=== PATIENT | male | born 1995 | race Native Hawaiian/Other Pacific Islander ===

== ENCOUNTER 2017-01-20 14:13 | Emergency (ER) | payer OTHER ==
[2017-01-20 14:53] VITALS: BP 136/87
[2017-01-20 15:11] LABS: Urine Drugs of Abuse Note Disclamer
[2017-01-20 15:26] LABS: Bilirubin,Urine NEG (Negative); Blood,Urine NEG (Negative); Ketones,Urine NEG (Negative); Leukocyte Esterase,Urine NEG (Negative); Mucus,Urine FEW /HPF; Nitrite,Urine NEG (Negative)
[2017-01-20 15:44] LABS: Basophils % (Auto) 0.4 % (0.0-1.8); Eosinophils % (Auto) 3.2 % (0.0-4.3); Hematocrit 43.7 % (35.5-45.6); Hemoglobin 14.9 gm/dl (11.8-15.2); Mean Corpuscular HGB Conc 34 % (32-34); Mean Corpuscular Hemoglobin 30 pg (28-32); Mean Corpuscular Volume 89 fl (84-94); Platelet Count 243 K/mm3 (140-440); Red Blood Count 4.93 M/mm3 (3.65-5.03); Red Cell Distribution Width 14.3 % (13.2-15.2); White Blood Count 14.1 K/mm3 (4.5-11.0)
[2017-01-20 15:50] LABS: Anion Gap 20 mmol/L; Blood Urea Nitrogen 16 mg/dL (9-20); Calcium 8.7 mg/dL (8.4-10.2); Carbon Dioxide 24 mmol/L (22-30); Chloride 100.5 mmol/L (98-107); Glucose 94 mg/dL (75-100); Sodium 140 mmol/L (137-145)
== END 2017-01-20 16:31 | disposition left against medical advice (07) ==
LOC: ED 14:13
DX: R45.4 Irritability and anger (principal); F17.200 Nicotine dependence, unspecified, uncomplicated; F15.90 Other stimulant use, unspecified, uncomplicated; Z53.21 Procedure and treatment not carried out due to patient leaving prior to being seen by health care provider
CPT/HCPCS: 36415; 80048; 80307; 81001; 85025; G0480; 80320

== ENCOUNTER 2021-03-02 16:40 | Emergency (ER) | payer SELFPAY ==
--- NOTE | 2021-03-02 16:51 | Emergency Department Report ---
HPI - General Time Seen by Provider: 03/02/21 16:41 - HPI HPI: Room 6 The patient is a 26-year-old male present with a chief complaint of overdose. EMS states they were called for an unresponsive patient after family found the patient unresponsive on the floor in the bedroom. EMS responded to find the patient breathing 8-10 times per minute and unresponsive. Family states that the patient uses "pills" so Narcan was administered. Approximately 10 minutes prior to arrival to the ED the patient became responsive. Upon arrival to the ED the patient is now responsive and answering questions. Patient denies any complaints. When asked what medication he took the patient states he took Xanax. Patient denies other ingestions ED Past Medical Hx - Past Medical History Hx Psychiatric Treatment: Yes (Mood disorder, Anger issues, Diff sleeping) - Surgical History Past Surgical History?: No - Family History Family history: no significant - Social History Smoking Status: Current Every Day Smoker Substance Use Type: Alcohol, Methamphetamines, Other ("Pills") - Medications Home Medications: Home Medications Medication Instructions Recorded Confirmed Last Taken Type Naloxone HCl [Narcan Nasal [place]] 4 mg NS ONCE PRN #1 spray 03/02/21 Unknown Rx ED Review of Systems ROS: Stated complaint: OVERDOSE Other details as noted in HPI Constitutional: no symptoms reported Eyes: denies: eye pain ENT: denies: throat pain Respiratory: no symptoms reported Cardiovascular: denies: chest pain Endocrine: no symptoms reported Gastrointestinal: denies: abdominal pain Genitourinary: denies: dysuria Musculoskeletal: denies: back pain Neurological: denies: headache Physical Exam - Physical Exam Physical Exam: GENERAL: The patient is well-developed well-nourished male lying on stretcher not appearing to be in acute distress. Pale HEENT: Normocephalic. Atraumatic. Extraocular motions are intact. Patient has moist mucous membranes. NECK: Supple. Trachea midline CHEST/LUNGS: Clear to auscultation. There is no respiratory distress noted. HEART/CARDIOVASCULAR: Regular. There is no tachycardia. There is no gallop rub or murmur. ABDOMEN: Abdomen is soft, nontender. Patient has normal bowel sounds. There is no abdominal distention. SKIN: There is no rash. There is no edema. There is no diaphoresis. NEURO: The patient is awake, alert, and oriented. The patient is cooperative. The patient has no focal neurologic deficits. The patient has normal speech. GCS 15 MUSCULOSKELETAL: There is no evidence of acute injury. ED Course - Reevaluation(s) Reevaluation #1: 03/02/21 19:19 Patient remains alert and oriented. Asking for food. Patient in no acute distress denies complaints. ED Medical Decision Making - Lab Data Result diagrams: 03/02/21 17:00 03/02/21 17:00 Laboratory Tests 03/02/21 03/02/21 03/02/21 17:00 17:00 17:00 WBC 24.2 H RBC 4.86 Hgb 15.3 H Hct 45.2 MCV 93 MCH 31 MCHC 34 RDW 13.8 Plt Count 240 Add Manual Diff Complete Total Counted 100 Seg Neuts % (Manual) 83.0 H Band Neutrophils % 1.0 Lymphocytes % (Manual) 9.0 L Monocytes % (Manual) 5.0 Eosinophils % (Manual) 2.0 Nucleated RBC % Not Reportable Seg Neutrophils # Man 20.1 H Band Neutrophils # 0.2 Lymphocytes # (Manual) 2.2 Abs React Lymphs (Man) 0.0 Monocytes # (Manual) 1.2 H Eosinophils # (Manual) 0.5 H Basophils # (Manual) 0.0 Metamyelocytes # 0.0 Myelocytes # 0.0 Promyelocytes # 0.0 Blast Cells # 0.0 WBC Morphology Not Reportable Hypersegmented Neuts Not Reportable Hyposegmented Neuts Not Reportable Hypogranular Neuts Not Reportable Smudge Cells Not Reportable Toxic Granulation Not Reportable Toxic Vacuolation Not Reportable Dohle Bodies Not Reportable Pelger-Huet Anomaly Not Reportable Otoniel Rods Not Reportable Platelet Estimate Consistent w auto Clumped Platelets Not Reportable Plt Clumps, EDTA Not Reportable Large Platelets Not Reportable Giant Platelets Not Reportable Platelet Satelliting Not Reportable Plt Morphology Comment Not Reportable RBC Morphology Normal Dimorphic RBCs Not Reportable Polychromasia Not Reportable Hypochromasia Not Reportable Poikilocytosis Not Reportable Anisocytosis Not Reportable Microcytosis Not Reportable Macrocytosis Not Reportable Spherocytes Not Reportable Pappenheimer Bodies Not Reportable Sickle Cells Not Reportable Target Cells Not Reportable Tear Drop Cells Not Reportable Ovalocytes Not Reportable Helmet Cells Not Reportable Griffith-Macarthur Bodies Not Reportable [place] Rings Not Reportable [place] Cells Not Reportable Bite Cells Not Reportable Crenated Cell Not Reportable Elliptocytes Not Reportable Acanthocytes (Spur) Not Reportable Rouleaux Not Reportable Hemoglobin C Crystals Not Reportable Schistocytes Not Reportable Malaria parasites Not Reportable [place] Bodies Not Reportable Hem Pathologist Commnt No ABG pH POC ABG pCO2 POC ABG pO2 POC ABG HCO3 ABG O2 Saturation POC ABG Base Excess ABG Hemoglobin ABG Oxyhemoglobin ABG Methemoglobin ABG Sodium ABG Potassium ABG Chloride ABG Glucose Carboxyhemoglobin FiO2 % Sodium 136 L Potassium 4.3 Chloride 98.8 Carbon Dioxide 20 L Anion Gap 22 BUN 12 Creatinine 1.0 Estimated GFR > 60 BUN/Creatinine Ratio 12 Glucose 289 H Calcium 9.0 Total Bilirubin 0.30 AST 57 H ALT 53 Alkaline Phosphatase 129 Total Creatine Kinase 178 H CK-MB (CK-2) 2.7 CK-MB (CK-2) Rel Index 1.5 Troponin T < 0.010 Total Protein 7.7 Albumin 4.4 Albumin/Globulin Ratio 1.3 Arterial Blood Glucose Salicylates Acetaminophen Plasma/Serum Alcohol 03/02/21 03/02/21 03/02/21 17:00 17:00 17:00 WBC RBC Hgb Hct MCV MCH MCHC RDW Plt Count Add Manual Diff Total Counted Seg Neuts % (Manual) Band Neutrophils % Lymphocytes % (Manual) Monocytes % (Manual) Eosinophils % (Manual) Nucleated RBC % Seg Neutrophils # Man Band Neutrophils # Lymphocytes # (Manual) Abs React Lymphs (Man) Monocytes # (Manual) Eosinophils # (Manual) Basophils # (Manual) Metamyelocytes # Myelocytes # Promyelocytes # Blast Cells # WBC Morphology Hypersegmented Neuts Hyposegmented Neuts Hypogranular Neuts Smudge Cells Toxic Granulation Toxic Vacuolation Dohle Bodies Pelger-Huet Anomaly Otoniel Rods Platelet Estimate Clumped Platelets Plt Clumps, EDTA Large Platelets Giant Platelets Platelet Satelliting Plt Morphology Comment RBC Morphology Dimorphic RBCs Polychromasia Hypochromasia Poikilocytosis Anisocytosis Microcytosis Macrocytosis Spherocytes Pappenheimer Bodies Sickle Cells Target Cells Tear Drop Cells Ovalocytes Helmet Cells Griffith-Macarthur Bodies [place] Rings Daisha Cells Bite Cells Crenated Cell Elliptocytes Acanthocytes (Spur) Rouleaux Hemoglobin C Crystals Schistocytes Malaria parasites [place]nam Bodies Hem Pathologist Commnt ABG pH POC ABG pCO2 POC ABG pO2 POC ABG HCO3 ABG O2 Saturation POC ABG Base Excess ABG Hemoglobin ABG Oxyhemoglobin ABG Methemoglobin ABG Sodium ABG Potassium ABG Chloride ABG Glucose Carboxyhemoglobin FiO2 % Sodium Potassium Chloride Carbon Dioxide Anion Gap BUN Creatinine Estimated GFR BUN/Creatinine Ratio Glucose Calcium Total Bilirubin AST ALT Alkaline Phosphatase Total Creatine Kinase CK-MB (CK-2) CK-MB (CK-2) Rel Index Troponin T Total Protein Albumin Albumin/Globulin Ratio Arterial Blood Glucose Salicylates < 0.3 L Acetaminophen 5.0 L Plasma/Serum Alcohol < 0.01 03/02/21 17:58 WBC RBC Hgb Hct MCV MCH MCHC RDW Plt Count Add Manual Diff Total Counted Seg Neuts % (Manual) Band Neutrophils % Lymphocytes % (Manual) Monocytes % (Manual) Eosinophils % (Manual) Nucleated RBC % Seg Neutrophils # Man Band Neutrophils # Lymphocytes # (Manual) Abs React Lymphs (Man) Monocytes # (Manual) Eosinophils # (Manual) Basophils # (Manual) Metamyelocytes # Myelocytes # Promyelocytes # Blast Cells # WBC Morphology Hypersegmented Neuts Hyposegmented Neuts Hypogranular Neuts Smudge Cells Toxic Granulation Toxic Vacuolation Dohle Bodies Pelger-Huet Anomaly Otoniel Rods Platelet Estimate Clumped Platelets Plt Clumps, EDTA Large Platelets Giant Platelets Platelet Satelliting Plt Morphology Comment RBC Morphology Dimorphic RBCs Polychromasia Hypochromasia Poikilocytosis Anisocytosis Microcytosis Macrocytosis Spherocytes Pappenheimer Bodies Sickle Cells Target Cells Tear Drop Cells Ovalocytes Helmet Cells Griffith-Macarthur Bodies [place] Rings [place] Cells Bite Cells Crenated Cell Elliptocytes Acanthocytes (Spur) Rouleaux Hemoglobin C Crystals Schistocytes Malaria parasites Satnam Bodies Hem Pathologist Commnt ABG pH 7.396 POC ABG pCO2 35.6 POC ABG pO2 125.7 H POC ABG HCO3 21.4 ABG O2 Saturation 98.5 POC ABG Base Excess -2.8 ABG Hemoglobin 15.2 ABG Oxyhemoglobin 97.5 ABG Methemoglobin 0.3 ABG Sodium 135.9 L ABG Potassium 3.9 ABG Chloride 103.0 ABG Glucose 150 H Carboxyhemoglobin 0.7 FiO2 % 21.0 Sodium Potassium Chloride Carbon Dioxide Anion Gap BUN Creatinine Estimated GFR BUN/Creatinine Ratio Glucose Calcium Total Bilirubin AST ALT Alkaline Phosphatase Total Creatine Kinase CK-MB (CK-2) CK-MB (CK-2) Rel Index Troponin T Total Protein Albumin Albumin/Globulin Ratio Arterial Blood Glucose 150 H Salicylates Acetaminophen Plasma/Serum Alcohol - EKG Data -: EKG Interpreted by Me EKG shows normal: sinus rhythm Rate: normal - EKG Data When compared to previous EKG there are: previous EKG unavailable Interpretation: other (No ischemic changes seen) - Radiology Data Radiology results: report reviewed (Chest x-ray) [facility] [address] [place] [address] X Ray Report Signed Patient: DEANA SARMIENTO MR#: [id number] 51 : 1995 Acct:[id number] Age/Sex: 26 / M ADM Date: 03/02/21 Loc: ED Attending Dr: Ordering Physician: JERARDO BLANTON MD Date of Service: 03/02/21 Procedure(s): XR chest 1V ap Accession Number(s): [id number] cc: JERARDO BLANTON MD Fluoro Time In Minutes: CHEST 1 VIEW 03/02/2021 4:21 PM INDICATION / CLINICAL INFORMATION: Unresponsive after overdose. COMPARISON: None available. FINDINGS: SUPPORT DEVICES: None. HEART / MEDIASTINUM: No significant abnormality. LUNGS / PLEURA: Low lung volumes with bibasilar opacities. No focal consolidation. No pneumothorax. ADDITIONAL FINDINGS: No significant additional findings. IMPRESSION: 1. No acute findings. Signer Name: Francisco Javier Aragon DO Signed: 03/02/2021 5:25 PM Workstation Name: [id number] Transcribed By: MUNDO Dictated By: FRANCISCO JAVIER ARAGON DO Electronically Authenticated By: FRANCISCO JAVIER ARAGON DO Signed Date/Time: 03/02/211724 DD/ 23 TD/TT: Print Cancel - Differential Diagnosis Overdose Critical care attestation.: If time is entered above; I have spent that time in minutes in the direct care of this critically ill patient, excluding procedure time. ED Disposition Clinical Impression: Drug overdose Disposition: 01 HOME / SELF CARE / HOMELESS Is pt being admited?: No Does the pt Need Aspirin: No Condition: Stable Instructions: Accidental Drug Poisoning, Adult, Preventing Poisoning, Adult Additional Instructions: Return to the emergency department should you develop worsening symptoms, kishan bility to tolerate food or liquids, high fever or any other concerns Prescriptions: Naloxone HCl [Narcan Nasal [place]] 4 mg NS ONCE PRN #1 spray PRN Reason: Overdose Referrals: PRIMARY CARE, [Primary Care Provider] - 3-5 Days Steven Teixeira [facility] [Outside] - 3-5 Days Time of Disposition: 19:55
[2021-03-02 17:27] LABS: Hematocrit 45.2 % (35.5-45.6); Hemoglobin 15.3 gm/dl (11.8-15.2); Mean Corpuscular HGB Conc 34 % (32-34); Mean Corpuscular Volume 93 fl (84-94); Platelet Count 240 K/mm3 (140-440); Red Blood Count 4.86 M/mm3 (3.65-5.03); Red Cell Distribution Width 13.8 % (13.2-15.2)
--- NOTE | 2021-03-02 17:29 | XRay Report ---
CHEST 1 VIEW 03/02/2021 4:21 PM INDICATION / CLINICAL INFORMATION: Unresponsive after overdose. COMPARISON: None available. FINDINGS: SUPPORT DEVICES: None. HEART / MEDIASTINUM: No significant abnormality. LUNGS / PLEURA: Low lung volumes with bibasilar opacities. No focal consolidation. No pneumothorax. ADDITIONAL FINDINGS: No significant additional findings. IMPRESSION: 1. No acute findings. Signer Name: Francisco Javier Good DO Signed: 03/02/2021 5:25 PM Workstation Name: [id number]
[2021-03-02 17:47] LABS: Creatine Kinase MB 2.7 ng/mL (0.0-4.0)
[2021-03-02 17:50] LABS: Alanine Aminotransferase 53 units/L (7-56); Albumin 4.4 g/dL (3.9-5); BUN/Creatinine Ratio 12; Blood Urea Nitrogen 12 mg/dL (9-20); Hemolysis Index 10
[2021-03-02 18:21] LABS: Band Neutrophils # (Manual) 0.2 K/mm3; Platelet Estimate Consistent w Auto; RBC Morphology Normal; Total Cells Counted 100
[2021-03-02] MEDS ORDERED: SODIUM CHLORIDE 0.9% 1000 ML 1,000 ML IV ONE (18:49)
[2021-03-02 20:39] VITALS: BP 124/83
--- NOTE | 2021-03-05 11:12 | Electrocardiograph Report ---
[facility] Test Date: 2021-03-02 Test Time: 19:49:15 Pat Name: DEANA SARMIENTO Department: Room: Gender: M [employer]: JAMIR : 1995 Requested By: JERARDO BLANTON Order Number: [id number] Reading MD: Awilda Granados Measurements Intervals [place] Rate: 95 P: 33 WA: 152 QRS: 87 QRSD: 106 T: 12 QT: 363 QTc: 457 Interpretive Statements Sinus rhythm Nonspecific ST changes No previous ECG available for comparison Electronically Signed On 03-05-2021 11:12:07 EDT by Awilda Granados
== END 2021-03-02 20:41 | disposition home or self-care (01) ==
LOC: ED 16:40
DX: T42.4X1A Poisoning by benzodiazepines, accidental (unintentional), initial encounter (principal); F17.200 Nicotine dependence, unspecified, uncomplicated; F15.90 Other stimulant use, unspecified, uncomplicated; Z72.89 Other problems related to lifestyle; Z79.899 Other long term (current) drug therapy; Y92.89 Other specified places as the place of occurrence of the external cause
CPT/HCPCS: 36415; 71045; 80053; 82550; 82553; 82805; 84484; 85007; 85025; 93005; 96360; 99284; J7030; 80320; G0480

== ENCOUNTER 2021-09-13 20:55 | Emergency (ER) | payer SELFPAY ==
[2021-09-13] MEDS ORDERED: NALOXONE 2 MG/2 ML INJ IV ONE (22:55)
[2021-09-13] MEDS ORDERED: NALOXONE 0.4 MG/1 ML INJ IV PRN (22:55)
--- NOTE | 2021-09-13 23:22 | Emergency Department Report ---
History of Present Illness - General Chief Complaint: Overdose Stated Complaint: AMS Time Seen by Provider: 09/13/21 22:42 Source: patient, EMS Mode of arrival: Stretcher Limitations: No Limitations - History of Present Illness Initial Comments: 26-year-old male with a past medical history mood disorder and anger issues presents to the hospital with opiate overdose. Patient told EMS that he took half a tab of oxycodone this evening. EMS found patient with decreased responsiveness and respirations. Patient apparently was breathing at every 2 to 4-minute and intubation was attempted however he started to respond after Narcan. He received 2 mg of intranasal Narcan followed by 2 mg of IV Narcan with improvement in mental status. EMS reports they have been to the home approximate 4 times in the past for same presentation. at time my evaluation patient is drowsy with a room air saturation between 89 and 92% and respiratory rate is 17. He opens his eyes to stimulation but does not speak. - Related Data Previous Rx's Medication Instructions Recorded Last Taken Type Naloxone HCl [Narcan Nasal [place]] 4 mg NS ONCE PRN #1 spray 03/02/21 Unknown Rx Naloxone HCl [Narcan Nasal [place]] 4 mg NS ONCE PRN #1 spray 09/14/21 Unknown Rx Allergies Allergy/AdvReac Type Severity Reaction Status Date / Time No Known Allergies Allergy Verified 09/14/21 00:12 ED Review of Systems ROS: Stated complaint: AMS Other details as noted in HPI Comment: All other systems reviewed and negative ED Past Medical Hx - Past Medical History Previous Medical History?: Yes Hx Psychiatric Treatment: Yes (Mood disorder, Anger issues, Diff sleeping) - Surgical History Past Surgical History?: No - Social History Smoking Status: Current Every Day Smoker Substance Use Type: Other - Medications Home Medications: Home Medications Medication Instructions Recorded Confirmed Last Taken Type Naloxone HCl [Narcan Nasal [place]] 4 mg NS ONCE PRN #1 spray 03/02/21 Unknown Rx Naloxone HCl [Narcan Nasal [place]] 4 mg NS ONCE PRN #1 spray 09/14/21 Unknown Rx ED Physical Exam - General Limitations: No Limitations - Other Other exam information: General: No acute distress Head: Atraumatic Eyes: normal appearance ENT: Moist mucous membranes Neck: Normal appearance, no midline tenderness Chest: Clear to auscultation bilaterally CV: Regular rate and rhythm Abdomen: Soft, normal bowel sounds, nontender, nondistended, no rebound or guarding Back: Normal inspection Extremity: Normal inspection, full range of motion Neuro: Drowsy, opens eyes to tactile stimulation, moves all extremities equally Psych: Appropriate behavior Skin: No rash ED Course Vital Signs 09/13/21 09/13/21 09/13/21 22:25 22:37 22:39 Temperature 97.6 F Pulse Rate 97 H 94 H Respiratory 18 15 Rate Blood Pressure 158/98 135/96 Blood Pressure 135/96 [Left] O2 Sat by Pulse 99 97 97 Oximetry 09/13/21 09/13/21 09/13/21 22:46 23:00 23:08 Temperature Pulse Rate 93 H 98 H Respiratory 15 18 Rate Blood Pressure 135/96 123/92 Blood Pressure [Left] O2 Sat by Pulse 93 87 95 Oximetry 09/13/21 09/13/21 09/13/21 23:16 23:30 23:46 Temperature Pulse Rate 100 H 101 H 93 H Respiratory 20 19 21 Rate Blood Pressure 127/89 120/84 125/84 Blood Pressure [Left] O2 Sat by Pulse 86 84 91 Oximetry 09/13/21 09/14/21 09/14/21 23:54 00:00 00:16 Temperature Pulse Rate 95 H 92 H 102 H Respiratory 21 22 24 Rate Blood Pressure 118/79 118/79 112/82 Blood Pressure [Left] O2 Sat by Pulse 88 93 85 Oximetry 09/14/21 09/14/21 09/14/21 02:52 02:53 02:55 Temperature Pulse Rate 83 83 84 Respiratory 16 15 15 Rate Blood Pressure 124/80 124/80 124/80 Blood Pressure [Left] O2 Sat by Pulse 98 99 99 Oximetry 09/14/21 09/14/21 09/14/21 02:57 02:59 03:01 Temperature Pulse Rate 83 83 82 Respiratory 16 16 15 Rate Blood Pressure 124/80 124/80 124/80 Blood Pressure [Left] O2 Sat by Pulse 99 99 99 Oximetry 09/14/21 09/14/21 09/14/21 03:03 03:05 03:07 Temperature Pulse Rate 82 81 82 Respiratory 16 23 15 Rate Blood Pressure 124/80 124/80 123/79 Blood Pressure [Left] O2 Sat by Pulse 99 99 100 Oximetry 09/14/21 09/14/21 09/14/21 03:09 03:11 03:13 Temperature Pulse Rate 81 81 82 Respiratory 15 15 20 Rate Blood Pressure 123/79 123/79 123/79 Blood Pressure [Left] O2 Sat by Pulse 99 99 99 Oximetry 09/14/21 09/14/21 09/14/21 03:15 03:17 03:19 Temperature Pulse Rate 83 82 83 Respiratory 15 18 16 Rate Blood Pressure 123/79 123/79 123/79 Blood Pressure [Left] O2 Sat by Pulse 99 99 99 Oximetry 09/14/21 09/14/21 09/14/21 03:21 03:22 03:23 Temperature Pulse Rate 82 82 83 Respiratory 17 17 17 Rate Blood Pressure 123/79 119/79 119/79 Blood Pressure [Left] O2 Sat by Pulse 99 98 99 Oximetry 09/14/21 09/14/21 09/14/21 03:25 03:27 03:29 Temperature Pulse Rate 83 84 83 Respiratory 17 17 16 Rate Blood Pressure 119/79 119/79 119/79 Blood Pressure [Left] O2 Sat by Pulse 99 99 99 Oximetry 09/14/21 09/14/21 09/14/21 03:31 03:33 03:35 Temperature Pulse Rate 82 82 83 Respiratory 19 15 15 Rate Blood Pressure 119/79 119/79 119/79 Blood Pressure [Left] O2 Sat by Pulse 99 99 99 Oximetry 09/14/21 09/14/21 09/14/21 03:37 03:39 03:41 Temperature Pulse Rate 82 79 81 Respiratory 15 16 14 Rate Blood Pressure 121/81 121/81 121/81 Blood Pressure [Left] O2 Sat by Pulse 99 99 99 Oximetry 09/14/21 09/14/21 09/14/21 03:43 03:45 03:47 Temperature Pulse Rate 80 81 85 Respiratory 15 14 13 Rate Blood Pressure 121/81 121/81 121/81 Blood Pressure [Left] O2 Sat by Pulse 99 99 99 Oximetry 09/14/21 09/14/21 09/14/21 03:49 03:51 03:52 Temperature Pulse Rate 81 80 80 Respiratory 15 16 16 Rate Blood Pressure 121/81 121/81 115/68 Blood Pressure [Left] O2 Sat by Pulse 99 99 99 Oximetry 09/14/21 09/14/21 09/14/21 03:53 03:55 03:57 Temperature Pulse Rate 83 80 79 Respiratory 16 15 16 Rate Blood Pressure 115/68 115/68 115/68 Blood Pressure [Left] O2 Sat by Pulse 99 99 99 Oximetry 09/14/21 09/14/21 09/14/21 03:59 04:01 04:03 Temperature Pulse Rate 81 81 94 H Respiratory 15 16 13 Rate Blood Pressure 115/68 115/68 115/68 Blood Pressure [Left] O2 Sat by Pulse 99 99 100 Oximetry 09/14/21 09/14/21 09/14/21 04:05 04:07 04:09 Temperature Pulse Rate 82 83 82 Respiratory 15 11 L 16 Rate Blood Pressure 115/68 129/63 129/63 Blood Pressure [Left] O2 Sat by Pulse 98 100 99 Oximetry 09/14/21 09/14/21 09/14/21 04:11 04:13 04:15 Temperature Pulse Rate 82 84 Respiratory 21 Rate Blood Pressure 129/63 129/63 129/63 Blood Pressure [Left] O2 Sat by Pulse 98 97 95 Oximetry 09/14/21 09/14/21 09/14/21 04:17 04:19 04:21 Temperature Pulse Rate 83 82 82 Respiratory 15 14 22 Rate Blood Pressure 129/63 129/63 129/63 Blood Pressure [Left] O2 Sat by Pulse 98 97 98 Oximetry 09/14/21 09/14/21 04:23 04:25 Temperature Pulse Rate 82 85 Respiratory 21 18 Rate Blood Pressure 121/80 121/80 Blood Pressure [Left] O2 Sat by Pulse 98 95 Oximetry - Reevaluation(s) Reevaluation #1: 09/14/21 04:21 Patient awake at this time requesting food to eat. Able to stand up. admits to taking [address] head canceled Reevaluation #2: 09/14/21 04:52 Patient is now awake and alert and ambulating without difficulty and endorses abusing multiple substances ED Medical Decision Making - Lab Data Result diagrams: 09/13/21 23:36 09/13/21 23:36 Lab Results 09/13/21 09/13/21 09/13/21 Range/Units 23:36 23:36 23:36 WBC (4.5-11.0) K/mm3 RBC (3.65-5.03) M/mm3 Hgb (11.8-15.2) gm/dl Hct (35.5-45.6) % MCV (84-94) fl MCH (28-32) pg MCHC (32-34) % RDW (13.2-15.2) % Plt Count (140-440) K/mm3 Lymph % (Auto) (13.4-35.0) % [place] % (Auto) (0.0-7.3) % Eos % (Auto) (0.0-4.3) % Baso % (Auto) (0.0-1.8) % Lymph # (Auto) (1.2-5.4) K/mm3 [place] # (Auto) (0.0-0.8) K/mm3 Eos # (Auto) (0.0-0.4) K/mm3 Baso # (Auto) (0.0-0.1) K/mm3 Seg Neutrophils % (40.0-70.0) % Seg Neutrophils # (1.8-7.7) K/mm3 Sodium 139 (137-145) mmol/L Potassium 4.1 (3.6-5.0) mmol/L Chloride 102.4 (98-107) mmol/L Carbon Dioxide 24 (22-30) mmol/L Anion Gap 17 mmol/L BUN 16 (9-20) mg/dL Creatinine 0.8 (0.8-1.3) mg/dL Estimated GFR > 60 ml/min BUN/Creatinine Ratio 20 % Glucose 78 (75-100) mg/dL Calcium 8.3 L (8.4-10.2) mg/dL Urine Color (Yellow) Urine Turbidity (Clear) Urine pH (5.0-7.0) Ur Specific [place] (1.003-1.030) Urine Protein (Negative) mg/dL Urine Glucose (UA) (Negative) mg/dL Urine Ketones (Negative) mg/dL Urine Blood (Negative) Urine Nitrite (Negative) Urine Bilirubin (Negative) Urine Urobilinogen (<2.0) mg/dL Ur Leukocyte Esterase (Negative) Urine WBC (Auto) (0.0-6.0) /HPF Urine RBC (Auto) (0.0-6.0) /HPF Urine Bacteria (Auto) (Negative) /HPF Urine Mucus /HPF Urine Sperm (NURSING PROGRAM COORDINATOR) /HPF Salicylates < 0.3 L (2.8-20.0) mg/dL Acetaminophen 5.0 L (10.0-30.0) ug/mL Ur Amphetamines Screen U Benzodiazepines Scrn Urine Cocaine Screen Plasma/Serum Alcohol (0-0.07) % 09/13/21 09/13/21 09/14/21 Range/Units 23:36 23:36 04:25 WBC 13.0 H (4.5-11.0) K/mm3 RBC 4.33 (3.65-5.03) M/mm3 Hgb 13.1 (11.8-15.2) gm/dl Hct 39.1 (35.5-45.6) % MCV 90 (84-94) fl MCH 30 (28-32) pg MCHC 34 (32-34) % RDW 13.0 L (13.2-15.2) % Plt Count 237 (140-440) K/mm3 Lymph % (Auto) 13.6 (13.4-35.0) % [place] % (Auto) 6.5 (0.0-7.3) % Eos % (Auto) 0.4 (0.0-4.3) % Baso % (Auto) 0.4 (0.0-1.8) % Lymph # (Auto) 1.8 (1.2-5.4) K/mm3 [place] # (Auto) 0.8 (0.0-0.8) K/mm3 Eos # (Auto) 0.1 (0.0-0.4) K/mm3 Baso # (Auto) 0.1 (0.0-0.1) K/mm3 Seg Neutrophils % 79.1 H (40.0-70.0) % Seg Neutrophils # 10.3 H (1.8-7.7) K/mm3 Sodium (137-145) mmol/L Potassium (3.6-5.0) mmol/L Chloride (98-107) mmol/L Carbon Dioxide (22-30) mmol/L Anion Gap mmol/L BUN (9-20) mg/dL Creatinine (0.8-1.3) mg/dL Estimated GFR ml/min BUN/Creatinine Ratio % Glucose (75-100) mg/dL Calcium (8.4-10.2) mg/dL Urine Color Straw (Yellow) Urine Turbidity Clear (Clear) Urine pH 7.0 (5.0-7.0) Ur Specific [place] 1.007 (1.003-1.030) Urine Protein 30 mg/dl (Negative) mg/dL Urine Glucose (UA) >=500 (Negative) mg/dL Urine Ketones Neg (Negative) mg/dL Urine Blood Neg (Negative) Urine Nitrite Neg (Negative) Urine Bilirubin Neg (Negative) Urine Urobilinogen < 2.0 (<2.0) mg/dL Ur Leukocyte Esterase Neg (Negative) Urine WBC (Auto) 1.0 (0.0-6.0) /HPF Urine RBC (Auto) 3.0 (0.0-6.0) /HPF Urine Bacteria (Auto) 3+ (Negative) /HPF Urine Mucus Few /HPF Urine Sperm 2+ (NURSING PROGRAM COORDINATOR) /HPF Salicylates (2.8-20.0) mg/dL Acetaminophen (10.0-30.0) ug/mL Ur Amphetamines Screen U Benzodiazepines Scrn Urine Cocaine Screen Plasma/Serum Alcohol < 0.01 (0-0.07) % 09/14/21 Range/Units 04:25 WBC (4.5-11.0) K/mm3 RBC (3.65-5.03) M/mm3 Hgb (11.8-15.2) gm/dl Hct (35.5-45.6) % MCV (84-94) fl MCH (28-32) pg MCHC (32-34) % RDW (13.2-15.2) % Plt Count (140-440) K/mm3 Lymph % (Auto) (13.4-35.0) % [place] % (Auto) (0.0-7.3) % Eos % (Auto) (0.0-4.3) % Baso % (Auto) (0.0-1.8) % Lymph # (Auto) (1.2-5.4) K/mm3 [place] # (Auto) (0.0-0.8) K/mm3 Eos # (Auto) (0.0-0.4) K/mm3 Baso # (Auto) (0.0-0.1) K/mm3 Seg Neutrophils % (40.0-70.0) % Seg Neutrophils # (1.8-7.7) K/mm3 Sodium (137-145) mmol/L Potassium (3.6-5.0) mmol/L Chloride (98-107) mmol/L Carbon Dioxide (22-30) mmol/L Anion Gap mmol/L BUN (9-20) mg/dL Creatinine (0.8-1.3) mg/dL Estimated GFR ml/min BUN/Creatinine Ratio % Glucose (75-100) mg/dL Calcium (8.4-10.2) mg/dL Urine Color (Yellow) Urine Turbidity (Clear) Urine pH (5.0-7.0) Ur Specific [place] (1.003-1.030) Urine Protein (Negative) mg/dL Urine Glucose (UA) (Negative) mg/dL Urine Ketones (Negative) mg/dL Urine Blood (Negative) Urine Nitrite (Negative) Urine Bilirubin (Negative) Urine Urobilinogen (<2.0) mg/dL Ur Leukocyte Esterase (Negative) Urine WBC (Auto) (0.0-6.0) /HPF Urine RBC (Auto) (0.0-6.0) /HPF Urine Bacteria (Auto) (Negative) /HPF Urine Mucus /HPF Urine Sperm (NURSING PROGRAM COORDINATOR) /HPF Salicylates (2.8-20.0) mg/dL Acetaminophen (10.0-30.0) ug/mL Ur Amphetamines Screen Presumptive positive U Benzodiazepines Scrn Presumptive positive Urine Cocaine Screen Presumptive positive Plasma/Serum Alcohol (0-0.07) % - Medical Decision Making 26-year-old male with history of polysubstance abuse presents to the hospital with alteration mental status secondary to drug intoxication. Patient required multiple doses of Narcan and prolonged ED evaluation due to excessive drowsiness. UDS reveals multiple substances in his system. Critical Care Time: No Critical care attestation.: If time is entered above; I have spent that time in minutes in the direct care of this critically ill patient, excluding procedure time. ED Disposition Clinical Impression: Drug abuse, Acute drug intoxication Disposition: 01 HOME / SELF CARE / HOMELESS Is pt being admited?: No Does the pt Need Aspirin: No Condition: Stable Instructions: Substance Use Disorder Additional Instructions: Take the medication as prescribed. Follow-up with your doctor or doctor/clinic provided. Return if symptoms worsen as indicated by your discharge instructions. SUBSTANCE ABUSE PROGRAMS: Sober Living [place]: Location: [place], [place] Address: [address] [place] [address] [address] [facility] Recovery: Address: [address] [place], [place] [id number] [facility] Adult Rehabilitation: Address: [address] [place] [address] [facility] Community: Address: [address] [place] [address] Prescriptions: Naloxone HCl [Narcan Nasal [place]] 4 mg NS ONCE PRN #1 spray PRN Reason: Opioid Reversal Referrals: ROB MURPHY MD [Primary Care Provider] - 3-5 Days Time of Disposition: 04:53
[2021-09-14] MEDS ORDERED: NALOXONE 0.4 MG/1 ML INJ IV ONE
[2021-09-14 00:08] LABS: Basophils # (Auto) 0.1 K/mm3 (0.0-0.1); Basophils % (Auto) 0.4 % (0.0-1.8); Eosinophils # (Auto) 0.1 K/mm3 (0.0-0.4); Eosinophils % (Auto) 0.4 % (0.0-4.3); Hematocrit 39.1 % (35.5-45.6); Hemoglobin 13.1 gm/dl (11.8-15.2); Lymphocytes # (Auto) 1.8 K/mm3 (1.2-5.4); Lymphocytes % (Auto) 13.6 % (13.4-35.0); Mean Corpuscular HGB Conc 34 % (32-34); Mean Corpuscular Volume 90 fl (84-94); Monocytes # (Auto) 0.8 K/mm3 (0.0-0.8); Monocytes % (Auto) 6.5 % (0.0-7.3); Platelet Count 237 K/mm3 (140-440); Red Blood Count 4.33 M/mm3 (3.65-5.03)
[2021-09-14] MEDS ORDERED: SODIUM CHLORIDE 0.9% 1000 ML 1,000 ML IV ONE (01:02)
[2021-09-14 01:36] LABS: BUN/Creatinine Ratio 20; Blood Urea Nitrogen 16 mg/dL (9-20); Calcium 8.3 mg/dL (8.4-10.2); Hemolysis Index 8
[2021-09-14 04:39] LABS: Bacteria,Urine 3+ /HPF (Negative); Bilirubin,Urine NEG (Negative); Blood,Urine NEG (Negative); Color,Urine Straw (Yellow); Mucus,Urine FEW /HPF; Sperm,Urine 2+ /HPF (NP); Urobilinogen,Urine < 2.0 mg/dL (<2.0)
[2021-09-14 04:46] LABS: Amphetamine Screen,Urine PRESUMPTIVE POSITIVE; Benzodiazepines Screen,Urine PRESUMPTIVE POSITIVE; Cannabinoid Screen,Urine PRESUMPTIVE NEGATIVE; Cocaine Screen,Urine PRESUMPTIVE POSITIVE; Methadone Screen,Urine PRESUMPTIVE NEGATIVE; Opiate Screen,Urine PRESUMPTIVE NEGATIVE
[2021-09-14 06:40] VITALS: BP 112/69
== END 2021-09-14 07:06 | disposition home or self-care (01) ==
LOC: ED 20:55
DX: F19.10 Other psychoactive substance abuse, uncomplicated (principal); F19.129 Other psychoactive substance abuse with intoxication, unspecified; F17.200 Nicotine dependence, unspecified, uncomplicated
CPT/HCPCS: 36415; 80048; 80307; 81001; 85025; 96361; 96374; 96376; 99284; J2310; J7030; 80320; Q0162; G0480

== ENCOUNTER 2021-10-20 18:33 | Emergency (ER) | payer SELFPAY ==
[2021-10-20] MEDS ORDERED: SODIUM CHLORIDE 0.9% 1000 ML 1,000 ML IV ONE (19:13)
--- NOTE | 2021-10-20 19:15 | Emergency Department Report ---
History of Present Illness - General Stated Complaint: OVERDOSE Time Seen by Provider: 10/20/21 19:04 - History of Present Illness Initial Comments: 26 yo M with h/o depression and bipolar brought in by EMS with suicide ideation and attempt by overdosing on Roxicodone. According to patient's mother and the sister that came with him he has told the mother he did not want to live anymore. He has done this in the past as well. Pt has been given nasal narcan 4 mg total with arousal. According to EMS patient was initially lethargic with pinpoint pupil before the narcan was given. No history provided by the patient except him asking if he was going to . No other modifying or associated factors reported. - Related Data Previous Rx's Medication Instructions Recorded Last Taken Type Sertraline [Zoloft] 25 mg PO QDAY #30 tab 10/21/21 Unknown Rx Allergies Allergy/AdvReac Type Severity Reaction Status Date / Time No Known Allergies Allergy Verified 10/20/21 19:14 ED Review of Systems ROS: Stated complaint: OVERDOSE Other details as noted in HPI Comment: All other systems reviewed and negative Psychiatric: depression, suicidal thoughts, other (overdose on Roxicodone) ED Past Medical Hx - Past Medical History Hx Psychiatric Treatment: Yes (Mood disorder, Anger issues, Diff sleeping) - Social History Smoking Status: Current Every Day Smoker Substance Use Type: Other - Medications Home Medications: Home Medications Medication Instructions Recorded Confirmed Last Taken Type Sertraline [Zoloft] 25 mg PO QDAY #30 tab 10/21/21 Unknown Rx ED Physical Exam - General Limitations: Altered Mental Status General appearance: alert, anxious, other (aggitated ) - Head Head exam: Present: atraumatic, normal inspection - Eye Eye exam: Present: normal appearance Pupils: Present: normal accommodation - ENT ENT exam: Present: normal exam, normal orophraynx, mucous membranes moist - Neck Neck exam: Present: normal inspection. Absent: tenderness, meningismus - Respiratory Respiratory exam: Present: normal lung sounds bilaterally. Absent: respiratory distress, accessory muscle use - Cardiovascular Cardiovascular Exam: Present: regular rate, normal rhythm, normal heart sounds - GI/Abdominal GI/Abdominal exam: Present: soft, normal bowel sounds. Absent: distended, tenderness - Extremities Exam Extremities exam: Present: normal inspection, normal capillary refill - Back Exam Back exam: Absent: tenderness - Neurological Exam Neurological exam: Present: alert - Psychiatric Psychiatric exam: Present: anxious, suicidal ideation - Skin Skin exam: Present: warm, normal color ED Course Vital Signs 10/20/21 10/20/21 10/20/21 19:05 19:11 19:16 Temperature 98.7 F Pulse Rate 109 H 103 H 106 H Respiratory 16 21 20 Rate Blood Pressure 134/93 Blood Pressure 150/100 134/93 [Left] O2 Sat by Pulse 98 100 100 Oximetry 10/20/21 10/20/21 10/20/21 19:22 19:30 19:39 Temperature 98 F Pulse Rate 103 H 105 H Respiratory 21 20 Rate Blood Pressure 134/93 126/87 Blood Pressure [Left] O2 Sat by Pulse 100 100 100 Oximetry 10/20/21 10/20/21 10/20/21 19:46 20:00 20:16 Temperature Pulse Rate 106 H 110 H 107 H Respiratory 22 20 20 Rate Blood Pressure 105/73 105/73 99/65 Blood Pressure [Left] O2 Sat by Pulse 100 94 95 Oximetry 10/20/21 10/20/21 10/20/21 20:30 20:46 21:00 Temperature Pulse Rate 113 H 111 H 112 H Respiratory 22 20 18 Rate Blood Pressure 95/70 105/71 110/80 Blood Pressure [Left] O2 Sat by Pulse 93 94 94 Oximetry 10/20/21 10/20/21 10/20/21 21:16 21:30 21:46 Temperature Pulse Rate 111 H 108 H 108 H Respiratory 18 18 19 Rate Blood Pressure 111/72 104/76 105/75 Blood Pressure [Left] O2 Sat by Pulse 94 94 94 Oximetry 10/20/21 10/20/21 10/20/21 22:00 22:16 22:30 Temperature Pulse Rate 104 H 106 H 110 H Respiratory 19 22 26 H Rate Blood Pressure 99/72 94/52 114/70 Blood Pressure [Left] O2 Sat by Pulse 95 93 92 Oximetry 10/20/21 10/20/21 10/21/21 22:34 23:00 00:00 Temperature Pulse Rate 105 H 103 H Respiratory 19 26 H 16 Rate Blood Pressure 114/70 113/74 117/72 Blood Pressure [Left] O2 Sat by Pulse 93 92 97 Oximetry 10/21/21 10/21/21 10/21/21 01:00 02:00 07:39 Temperature Pulse Rate 104 H 99 H Respiratory 21 20 Rate Blood Pressure 97/61 125/64 Blood Pressure [Left] O2 Sat by Pulse 93 92 96 Oximetry 10/21/21 10/21/21 10:05 17:13 Temperature Pulse Rate 98 H 86 Respiratory 18 16 Rate Blood Pressure Blood Pressure 130/92 122/84 [Left] O2 Sat by Pulse 98 98 Oximetry - Reevaluation(s) Reevaluation #1: 10/20/21 19:17 here with overdose on roxicodone in an attempt to kill himself-- pt have had 2 doses of intranasal narcan enroute EMS. Pt is alert at this point but a little sleepy and noted with hypoxia with O2 sat 88 % while on 2L NC-- Pt immediately started on Oxygen supplement 6 L nonrebreather. Will go ahead and order routine labs including CBC, CMP and UA to rule out any infectious process or electrolyte abnormality, also check thyroid profile for any thyroid abnormality--and order UDS as well. Reevaluation #2: 10/20/21 19:20 Due to high probability of clinically significant, life threatening deterioration, this patient required my highest level of preparedness to intervene emergently and I personally spent this critical care time directly and personally managing this patient. This critical care time included obtaining a history; examining this patient; pulse oximetry ; ordering and review of studies ; arranging urgent treatment with development of a management plan ; evaluation of patient's response to treatment ; frequent reassessment ; and, discussion with other providers. This critical care time was performed to assess and manage the high probability of imminent, life-threatening deterioration that could result in multiple organ damage if not done in a timely fashion. ED Medical Decision Making - Lab Data Result diagrams: 10/20/21 19:45 10/20/21 19:45 Critical Care Time: Yes Critical care time in (mins) excluding proc time.: 60 Critical care attestation.: If time is entered above; I have spent that time in minutes in the direct care of this critically ill patient, excluding procedure time. Critical Care Time: Due to high probability of clinically significant, life threatening deterioration, this patient required my highest level of preparedness to intervene emergently and I personally spent this critical care time directly and personally managing this patient. This critical care time included obtaining a history; examining this patient; pulse oximetry ; ordering and review of studies ; arranging urgent treatment with development of a management plan ; evaluation of patient's response to treatment ; frequent reassessment ; and, discussion with other providers. This critical care time was performed to a ssess and manage the high probability of imminent, life-threatening deterioration that could result in multiple organ damage if not done in a timely fashion. ED Disposition Clinical Impression: Suicidal ideation, Suicide attempt Opioid overdose Qualifiers: Encounter type: initial encounter Injury intent: intentional self-harm Qualified Code(s): T40.2X2A - Poisoning by other opioids, intentional self-harm, initial encounter Disposition: HOME / SELF CARE / HOMELESS Is pt being admited?: No Does the pt Need Aspirin: No Condition: Stable Instructions: Suicidal Feelings: How to Help Yourself, Opioid Overdose Additional Instructions: Professional and Agency Contacts To help [facility](22/12) [place] Crisis Line: Suicide Prevention Line: Crisis Text Line: Text START to [phone] Emergency: 911 Outpatient COMMUNITY Behavioral Health Resources: [facility]: [facility] [address] [place], [place] [address] [facility] - [facility] [address] [place] [address] [facility] - [address] [place] [address] Thursday thru Thursday - 8am - 5pm [place]: [facility] Address: [address] [place] [address] [facility] Address: [address] [place] [address] Thursday thru Thursday- 7am-2pm [facility] Address: [address] [place] [address] Thursday thru Thursday: 8:30AM-5PM OUTPATIENT MENTAL HEALTH RESOURCES [facility], [facility] Leonardo Spencer MD: [address], [address] [place], [place] [id number] [place] [address] [id number] [place] [facility]: [facility] [address] [place] [address] [place] [address] [phone] [facility] Integrative Psychiatry: [facility] Healthcare: [address] [facility] [address] [place] [address] [facility] [id number] [facility]: Uzair Roberts MD: [address] [facility] [address] [facility] [id number] [facility]: [address] [facility] [place], [place] [id number] [phone] [place] CRISIS AND ACCESS LINE: Prescriptions: Sertraline [Zoloft] 25 mg PO QDAY #30 tab Referrals: ROB MURPHY MD [Primary Care Provider] - 3-5 Days
[2021-10-20 20:35] LABS: Basophils % (Auto) 0.1 % (0.0-1.8); Eosinophils % (Auto) 0.2 % (0.0-4.3); Hematocrit 39.4 % (35.5-45.6); Hemoglobin 12.7 gm/dl (11.8-15.2); Lymphocytes # (Auto) 1.2 K/mm3 (1.2-5.4); Lymphocytes % (Auto) 7.7 % (13.4-35.0); Mean Corpuscular HGB Conc 32 % (32-34); Mean Corpuscular Volume 93 fl (84-94); Monocytes # (Auto) 0.8 K/mm3 (0.0-0.8); Monocytes % (Auto) 5.5 % (0.0-7.3); Platelet Count 229 K/mm3 (140-440); Red Blood Count 4.25 M/mm3 (3.65-5.03); Red Cell Distribution Width 13.7 % (13.2-15.2)
[2021-10-20 20:42] LABS: INR 0.91 (0.87-1.13)
[2021-10-20 20:56] LABS: Alanine Aminotransferase 38 units/L (7-56); Albumin 4.3 g/dL (3.9-5); BUN/Creatinine Ratio 12; Blood Urea Nitrogen 15 mg/dL (9-20); Calcium 7.9 mg/dL (8.4-10.2); Hemolysis Index 11
[2021-10-20 21:00] LABS: Bacteria,Urine 1+ /HPF (Negative); Bilirubin,Urine NEG (Negative); Blood,Urine NEG (Negative); Color,Urine Straw (Yellow); Mucus,Urine FEW /HPF; Protein,Urine <15 mg/dL mg/dL (Negative); Urobilinogen,Urine < 2.0 mg/dL (<2.0); WBC,Urine < 1.0 /HPF (0.0-6.0)
[2021-10-20 21:07] LABS: Amphetamine Screen,Urine Negative; Cannabinoid Screen,Urine Negative; Methadone Screen,Urine Negative; Opiate Screen,Urine Negative
[2021-10-20 21:21] LABS: Benzodiazepines Screen,Urine Positive; Cocaine Screen,Urine Positive
[2021-10-21] MEDS ORDERED: ETOMIDATE 20 MG/10 ML INJ IV ONE (04:53)
[2021-10-21] MEDS ORDERED: SUCCINYLCHOLINE CHLORIDE 200 MG/10 ML INJ MDV ONE (04:53)
--- NOTE | 2021-10-21 08:58 | Electrocardiograph Report ---
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
--- NOTE | 2021-10-21 15:37 | Consultation ---
History of Present Illness - Reason for Consult Consult date: 10/21/21 Reason for consult: OD - History of Present Psychiatric Illness The patient was seen today. He is a/o x 3. He is calm, cooperative and polite. The patient says he took a total of 2 thomas last night and this morning, but cut them in half. He says when he came in the nurse was saying that he told told EMS that he was suicidal. The patient says "if I said that I must have been confused. I was getting high and this is not my first time doing this." He says "I never attempted suicide." Previous records confirm what the patient says, that this is not the patient first time doing this. He patient says "I'm just being honest. I was getting high." He also says he buys xanax off the street. The patient says he's been clean of methamphetamine and THC for about 4 months. He denies cocaine use, but his UDS is positive for it. He says he's been off his meds for about two years because he never went back. He says he was on "zoloft and xanax" but didn't go back to get his refills. He says "so now I just buy them off the street." The patient denies hallucinations of any kind. PAST PSYCHIATRIC HISTORY: Diagnoses: depression, anxiety Suicide attempts or Self-harm behavior: Denies Prior psychiatric hospitalizations: Denies Substance Abuse history: Meth, THC, pos for Cocaine Previous psychiatric medications tried: Denies Outpatient treatment: Denies PAST MEDICAL HISTORY: None reported or document Family Psychiatric History: None reported or documented SOCIAL HISTORY Marital Status: Single Living Arrangements: with parents Employment Status: Employed Access to guns/weapons: Denies Education: high school History of Abuse: Denies Legal History: Denies REVIEW OF SYSTEMS Constitutional: Negative for weight loss ENT: Negative for stridor Respiratory: Negative for cough or hemoptysis All other systems reviewed and are negative MENTAL STATUS EXAMINATION General Appearance and Behavior: Age appropriate, wearing appropriate clothes, cooperative, polite with questioning, good eye contact, polite, pleasant Cooperation: cooperative Psychomotor Behavior: Psychomotor normal Mood: Better Affect and affective range: Congruent with stated mood Thought Process: Goal directed Thought Content: None Speech: Normal volume, Regular rate and rhythm Suicidal Ideation: Denies Homicidal Ideation: Denies Hallucination: Denies Delusions: None elicited Impulse Control: limited Insight and Judgment: Limited Memory: Intact Attention: attentive Orientation: Alert and oriented Diagnoses: Unintentional Drug OD Polysubstance Abuse Treatment Plan Zoloft 25mg po daily PSYCHOTHERAPY: Supportive psychotherapy provided MEDICAL: Per primary team DELIRIUM PRECAUTIONS: Please re-orient patient frequently, keep lights on during the day, and minimize benzodiazepines and opiates as these medications could worsen patient's confusion. EDUCATIONAL FUNDRAISING DIRECTOR: Per medical team DISPOSITION: Do not recommend acute psychiatric inpatient treatment. The patient understands that if SI/HI arise he is to seek immediate assistance He is to abstain from all illicit drug use The dress cap maker is to give the patient all necessary outpatient resources including drug rehab, med management and CBT He is to follow up with outpatient psych in 7 to 14 days upon discharge Will sign off. Thank you for the consult. Case staffed with Dr. Lewis Medications and Allergies Allergies Allergy/AdvReac Type Severity Reaction Status Date / Time No Known Allergies Allergy Verified 10/20/21 19:14 Home Medications Medication Instructions Recorded Confirmed Last Taken Type Sertraline [Zoloft] 25 mg PO QDAY #30 tab 10/21/21 Unknown Rx Mental Status Exam - Vital signs Last Vital Signs Temp 98 F 10/20/21 19:22 Pulse 98 H 10/21/21 10:05 Resp 18 10/21/21 10:05 BP 130/92 10/21/21 10:05 Pulse Ox 98 10/21/21 10:05 Results Result Diagrams: 10/20/21 19:45 10/20/21 19:45 Abnormal lab results 10/20/21 10/20/21 10/20/21 Range/Units 19:45 19:45 19:45 WBC 15.3 H (4.5-11.0) K/mm3 Lymph % (Auto) 7.7 L (13.4-35.0) % Seg Neutrophils % 86.5 H (40.0-70.0) % Seg Neutrophils # 13.2 H (1.8-7.7) K/mm3 Calcium 7.9 L (8.4-10.2) mg/dL AST 46 H (5-40) units/L Salicylates < 0.3 L (2.8-20.0) mg/dL Acetaminophen (10.0-30.0) ug/mL 10/20/21 Range/Units 19:45 WBC (4.5-11.0) K/mm3 Lymph % (Auto) (13.4-35.0) % Seg Neutrophils % (40.0-70.0) % Seg Neutrophils # (1.8-7.7) K/mm3 Calcium (8.4-10.2) mg/dL AST (5-40) units/L Salicylates (2.8-20.0) mg/dL Acetaminophen 5.0 L (10.0-30.0) ug/mL All other labs normal.
[2021-10-21 17:14] VITALS: BP 122/84
== END 2021-10-21 17:14 | disposition home or self-care (01) ==
LOC: ED 18:33
DX: T40.2X2A Poisoning by other opioids, intentional self-harm, initial encounter (principal); R45.851 Suicidal ideations; Z79.899 Other long term (current) drug therapy; X83.8XXA Intentional self-harm by other specified means, initial encounter; Y93.89 Activity, other specified; Y92.89 Other specified places as the place of occurrence of the external cause; Y99.8 Other external cause status
CPT/HCPCS: 36415; 80053; 80307; 80320; 81001; 83880; 84443; 84484; 85025; 85610; 85730; 93005; 96360; 99284; J3490; G0480; J0330

== ENCOUNTER 2021-11-16 10:43 | Emergency (ER) | payer SELFPAY ==
--- NOTE | 2021-11-16 11:28 | Emergency Department Report ---
ED General Adult HPI - General Chief complaint: Overdose Stated complaint: OVERDOSE Time Seen by Provider: 11/16/21 11:06 Source: EMS Mode of arrival: Stretcher Limitations: No Limitations - History of Present Illness Initial comments: Patient presents 2/ being found unresponsive in his garage. Unknonw how long he had been down. Pr EMS, patient had a GCS of 3/15 and was agonal when they got there. After 2 mg of narcan, he woke up. Patient here states he took 1 tablet of roxicodone (unknown strength), 2 xanaxes (5 mg each) and drank some beer) prior to the episode. Denies any SALCIDO, CP, SOB, back pain, abd pain, numbness, weakness. Also denies suicidal ideations, thought or plan. Severity scale (0 -10): 0 - Related Data Previous Rx's Medication Instructions Recorded Last Taken Type Sertraline [Zoloft] 25 mg PO QDAY #30 tab 10/21/21 Unknown Rx Allergies Allergy/AdvReac Type Severity Reaction Status Date / Time No Known Allergies Allergy Verified 11/16/21 10:52 ED Review of Systems ROS: Stated complaint: OVERDOSE Other details as noted in HPI Comment: All other systems reviewed and negative Constitutional: denies: chills, fever ED Past Medical Hx - Past Medical History Hx Psychiatric Treatment: Yes (Mood disorder, Anger issues, Diff sleeping) Additional medical history: drug abuse - Social History Smoking Status: Current Every Day Smoker Substance Use Type: Other - Medications Home Medications: Home Medications Medication Instructions Recorded Confirmed Last Taken Type Sertraline [Zoloft] 25 mg PO QDAY #30 tab 10/21/21 Unknown Rx ED Physical Exam - General Limitations: No Limitations General appearance: alert, in no apparent distress - Head Head exam: Present: atraumatic, normocephalic - Eye Eye exam: Present: PERRL, EOMI - ENT ENT exam: Present: mucous membranes moist, other (airway patent) - Neck Neck exam: Present: other (supple; no JVD) - Respiratory Respiratory exam: Present: other (good air entry, nml I:E, CTAB, tina use of ANA MARIA) - Cardiovascular Cardiovascular Exam: Present: regular rate. Absent: rubs, gallop - GI/Abdominal GI/Abdominal exam: Present: soft, normal bowel sounds. Absent: distended, tenderness - Extremities Exam Extremities exam: Present: full ROM. Absent: tenderness - Back Exam Back exam: Present: full ROM. Absent: tenderness - Neurological Exam Neurological exam: Present: alert, oriented X3, CN II-XII intact, other (GCS 15/15 ([id number])). Absent: motor sensory deficit - Psychiatric Psychiatric exam: Present: normal affect, normal mood. Absent: homicidal ideation, suicidal ideation - Skin Skin exam: Present: warm, normal color ED Course Vital Signs 11/16/21 11/16/21 10:51 11:10 Temperature 98.4 F Pulse Rate 112 H Respiratory 16 Rate Blood Pressure 130/97 [Left] O2 Sat by Pulse 98 96 Oximetry - Reevaluation(s) Reevaluation #1: 11/16/21 14:23 GCS 15/15 ED Medical Decision Making - Lab Data Result diagrams: 11/16/21 11:20 11/16/21 11:20 Laboratory Tests 11/16/21 11/16/21 11/16/21 11:20 11:20 11:20 WBC 14.1 H RBC 4.32 Hgb 13.2 Hct 39.2 MCV 91 MCH 31 MCHC 34 RDW 13.2 Plt Count 266 Lymph % (Auto) 17.2 [place] % (Auto) 6.6 Eos % (Auto) 2.0 Baso % (Auto) 0.5 Lymph # (Auto) 2.4 [place] # (Auto) 0.9 H Eos # (Auto) 0.3 Baso # (Auto) 0.1 Seg Neutrophils % 73.7 H Seg Neutrophils # 10.3 H PT INR APTT Sodium 136 L Potassium 3.3 L Chloride 100.4 Carbon Dioxide 22 Anion Gap 17 BUN 17 Creatinine 1.0 Estimated GFR > 60 BUN/Creatinine Ratio 17 Glucose 123 H Calcium 8.4 Total Bilirubin 0.40 AST 18 ALT 21 Alkaline Phosphatase 112 Troponin T < 0.010 Total Protein 6.8 Albumin 4.2 Albumin/Globulin Ratio 1.6 Salicylates < 0.3 L Acetaminophen Plasma/Serum Alcohol 11/16/21 11/16/21 11/16/21 11:20 11:20 11:20 WBC RBC Hgb Hct MCV MCH MCHC RDW Plt Count Lymph % (Auto) [place] % (Auto) Eos % (Auto) Baso % (Auto) Lymph # (Auto) [place] # (Auto) Eos # (Auto) Baso # (Auto) Seg Neutrophils % Seg Neutrophils # PT 14.0 INR 0.97 APTT 31.0 Sodium Potassium Chloride Carbon Dioxide Anion Gap BUN Creatinine Estimated GFR BUN/Creatinine Ratio Glucose Calcium Total Bilirubin AST ALT Alkaline Phosphatase Troponin T Total Protein Albumin Albumin/Globulin Ratio Salicylates Acetaminophen 5.0 L Plasma/Serum Alcohol < 0.01 UA pending U tox pending EKG still not done @ 14:25 despite multiple direct requests to ancillary staff by this MD. CT head: no acute intracranial process CXR: no acute cardiopulmonary process - Medical Decision Making Poison control consulted. They recommended supportive care for now and obs x 6 hours. If still stable and with nml GCS at that time, can be dc-3d home, if there are no other indications for admission. Critical Care Time: Yes Critical care time in (mins) excluding proc time.: 40 Critical care attestation.: If time is entered above; I have spent that time in minutes in the direct care of this critically ill patient, excluding procedure time. ED Disposition Clinical Impression: Accidental overdose Disposition: 30 STILL A PATIENT Is pt being admited?: No Condition: Stable Time of Disposition: 15:00 (Patient 4 hrs 15 mins in Ed @ this time. [facility] Sign out was given to him by me.)
[2021-11-16 11:39] LABS: Basophils # (Auto) 0.1 K/mm3 (0.0-0.1); Basophils % (Auto) 0.5 % (0.0-1.8); Eosinophils # (Auto) 0.3 K/mm3 (0.0-0.4); Hematocrit 39.2 % (35.5-45.6); Hemoglobin 13.2 gm/dl (11.8-15.2); Lymphocytes # (Auto) 2.4 K/mm3 (1.2-5.4); Lymphocytes % (Auto) 17.2 % (13.4-35.0); Mean Corpuscular HGB Conc 34 % (32-34); Mean Corpuscular Volume 91 fl (84-94); Monocytes # (Auto) 0.9 K/mm3 (0.0-0.8); Monocytes % (Auto) 6.6 % (0.0-7.3); Platelet Count 266 K/mm3 (140-440); Red Blood Count 4.32 M/mm3 (3.65-5.03); Red Cell Distribution Width 13.2 % (13.2-15.2)
--- NOTE | 2021-11-16 11:52 | XRay Report ---
CHEST 1 VIEW INDICATION: AMS. COMPARISON: 03/02/2021 FINDINGS: SUPPORT DEVICES: None. HEART: Within normal limits. LUNGS/PLEURA: No acute air space or interstitial disease. ADDITIONAL FINDINGS: None. IMPRESSION: 1. No acute findings. Signer Name: Jesus Carrera MD Signed: 11/16/2021 11:48 AM Workstation Name: [id number]
[2021-11-16 11:54] LABS: INR 0.97 (0.87-1.13)
[2021-11-16 12:02] LABS: Alanine Aminotransferase 21 units/L (7-56); Albumin 4.2 g/dL (3.9-5); BUN/Creatinine Ratio 17; Blood Urea Nitrogen 17 mg/dL (9-20); Calcium 8.4 mg/dL (8.4-10.2); Hemolysis Index 10
--- NOTE | 2021-11-16 13:51 | Cat Scan Report ---
CT head/brain wo con INDICATION / CLINICAL INFORMATION: 26 years Male; AMS. TECHNIQUE: Routine CT head without contrast. All CT scans at this location are performed using CT dos e reduction for ALARA by means of automated exposure control. COMPARISON: None. FINDINGS: BRAIN / INTRACRANIAL CONTENTS: No acute hemorrhage, mass effect, midline shift, hydrocephalus, or acu te, large territorial infarct. No signs of significant atrophy or chronic infarct. No significant whi te matter abnormality seen. CRANIOCERVICAL JUNCTION: No significant abnormality. ORBITS: No significant abnormality of visualized orbits. SINUSES / MASTOIDS: Mild to moderate mucosal thickening seen in the left maxillary antrum. ADDITIONAL FINDINGS: None. IMPRESSION: 1. No focal mass, hemorrhage, hydrocephalus, or acute, large territorial infarct. Signer Name: Shashi Guillermo MD, III Signed: 11/16/2021 1:47 PM Workstation Name: [id number]
[2021-11-16] MEDS ORDERED: SODIUM CHLORIDE 0.9% 1000 ML 1,000 ML IV ONE (14:26)
[2021-11-16 17:44] LABS: Bilirubin,Urine NEG (Negative); Blood,Urine NEG (Negative); Color,Urine Straw (Yellow); Protein,Urine <15 mg/dL mg/dL (Negative); Urobilinogen,Urine < 2.0 mg/dL (<2.0)
[2021-11-16 17:45] LABS: RBC,Urine < 1.0 /HPF (0.0-6.0); WBC,Urine < 1.0 /HPF (0.0-6.0)
[2021-11-16 17:53] LABS: Amphetamine Screen,Urine Negative; Cannabinoid Screen,Urine Negative; Methadone Screen,Urine Negative; Opiate Screen,Urine Negative
[2021-11-16 18:08] LABS: Benzodiazepines Screen,Urine Positive; Cocaine Screen,Urine Positive
[2021-11-16] MEDS ORDERED: POTASSIUM CHLORIDE ER 20 MEQ TAB PO ONE (19:28)
[2021-11-16 22:06] VITALS: BP 128/88
--- NOTE | 2021-11-17 10:42 | Electrocardiograph Report ---
[facility] Test Date: 2021-11-16 Test Time: 14:43:52 Pat Name: DEANA SARMIENTO Department: Room: Gender: M Manager Clinical: GP : 1995 Requested By: FLORES HEARN Order Number: [id number] Reading MD: James Lane Measurements Intervals [place] Rate: 87 P: 39 LA: 152 QRS: 91 QRSD: 109 T: 19 QT: 381 QTc: 458 Interpretive Statements Sinus rhythm Compared to ECG 10/20/2021 20:04:52 Sinus tachycardia no longer present ST (T wave) deviation no longer present Electronically Signed On 11-17-2021 10:42:[address]
== END 2021-11-16 22:20 | disposition home or self-care (01) ==
LOC: ED 10:43
DX: T50.901A Poisoning by unspecified drugs, medicaments and biological substances, accidental (unintentional), initial encounter (principal); F17.200 Nicotine dependence, unspecified, uncomplicated; Z79.899 Other long term (current) drug therapy; Y92.89 Other specified places as the place of occurrence of the external cause
CPT/HCPCS: 36415; 70450; 71045; 80053; 80307; 80320; 81001; 84484; 85025; 85610; 85730; 93005; 99285; G0480

== ENCOUNTER 2022-01-03 10:33 | Emergency (ER) | payer SELFPAY ==
[2022-01-03 10:43] VITALS: BP 158/97
== END 2022-01-03 10:53 | disposition left against medical advice (07) ==
LOC: ED 10:33
DX: T50.901A Poisoning by unspecified drugs, medicaments and biological substances, accidental (unintentional), initial encounter (principal); Z53.21 Procedure and treatment not carried out due to patient leaving prior to being seen by health care provider; Y92.89 Other specified places as the place of occurrence of the external cause